=== PATIENT | male | born 1945 | race Caucasian/White ===

== ENCOUNTER 2017-05-31 17:57 | Observation (INO) | payer OTHER ==
[~2017-05-31] VITALS: Ht 167.6 cm; Wt 95.0 kg
[~2017-05-31 17:57] MED LIST: AMLO2.5T PO; ASPI325T PO; CYAN1000P IM; FLUT50SP EACH NARE; GABA300C3 PO; HYDR10SO PO; METHO500 PO; MEVA40TA PO; MONT10TA2 PO; TRIX0.07 TOP; ZOLP5TAB3 PO
[2017-05-31 17:58] VITALS: BP 157/84; PULSE 67; RESP 16; TEMP 98.9; O2SAT 97
[2017-05-31 19:11] LABS: AUTOMATED NEUTROPHIL # 7.7 TH/MM3 (1.8-7.7); BASOPHIL # 0.1 TH/MM3 (0-0.2); BASOPHIL % 0.5 % (0.0-2.0); EOSINOPHIL % 0.5 % (0.0-4.0); HEMATOCRIT 39.4 % (39.0-51.0); HEMO FLAGS DIFF FINAL; LYMPH % 18.4 % (9.0-44.0); MEAN CELL VOLUME 97.1 FL (80.0-100.0); MEAN CORPUSCULAR HEMOGLOBIN 33.2 PG (27.0-34.0); MEAN CORPUSCULAR HGB CONC 34.2 % (32.0-36.0); MONO % 9.6 % (0.0-8.0); PLATELET COUNT 204 TH/MM3 (150-450); RED BLOOD COUNT 4.06 MIL/MM3 (4.50-5.90); RED CELL DISTRIBUTION WIDTH 12.9 % (11.6-17.2); WHITE BLOOD COUNT 10.8 TH/MM3 (4.0-11.0)
--- NOTE | 2017-05-31 19:11 | RADRPT ---
EXAM DATE/TIME: 05/31/2017 19:04 [facility] COMPARISON: CHEST SINGLE AP, January 14, 2014, 9:15. INDICATIONS : Chest pain and short of breath today. MEDICAL HISTORY : Hypertension. Atrial fibrillation. SURGICAL HISTORY : Pacemaker. ENCOUNTER: Initial ACUITY: 1 day PAIN SCORE: 5/10 LOCATION: Bilateral chest FINDINGS: PA and lateral views of the chest demonstrate the lungs to be symmetrically aerated without evidence of mass, infiltrate or effusion. The cardiomediastinal contours are unremarkable. Osseous structure s are intact with hypertrophic right-sided spurring mid and lower thoracic spine. Bipolar pacemaker o verlies the left hemithorax unchanged CONCLUSION: No acute disease. No significant change has occurred. Paul Witt MD on May 31, 2017 at 19:09 Board Certified Radiologist. This report was verified electronically.
[2017-05-31 19:24] LABS: ANION GAP 6 MEQ/L (5-15); BLOOD UREA NITROGEN 22 MG/DL (7-18); CHLORIDE 108 MEQ/L (98-107); GLOMERULAR FILTRATION RATE 64 ML/MIN (>89); POTASSIUM 4.2 MEQ/L (3.5-5.1); SODIUM (NA) 139 MEQ/L (136-145)
[2017-05-31 19:32] LABS: CREATINE KINASE 53 U/L (39-308)
[2017-05-31 20:35] VITALS: O2SAT 100
[2017-05-31] MEDS ORDERED: APIX5TAB PO (20:42)
[2017-05-31] MEDS ORDERED: AZEL1SPR2 EACH NARE (20:42)
[2017-05-31] MEDS ORDERED: CYAN1000P IM (20:42)
[2017-05-31] MEDS ORDERED: ASPI325T33 PO (20:42)
[2017-05-31] MEDS ORDERED: FLUT50SP EACH NARE (20:42)
[2017-05-31] MEDS ORDERED: AMLO2.5T PO (20:42)
[2017-05-31] MEDS ORDERED: ATOR40TA16 PO (20:42)
[2017-05-31] MEDS ORDERED: ZOSTCRE TOPICAL (20:42)
[2017-05-31] MEDS ORDERED: SODIUM CHLORIDE 0.9% FLUSH 10 ML FLUSH IV FLUSH PRN (20:45)
[2017-05-31] MEDS ORDERED: NITROGLYCERIN 2% OINT 1 GM PACKET TOP SCH (20:45)
[2017-05-31 20:46] VITALS: O2SAT 100
--- NOTE | 2017-05-31 20:55 | PD ---
HPI Chief Complaint: Chest Pain Time Seen by Provider: 20:27 Travel History International Travel<30 days: No Contact w/Intl Traveler<30days: No Traveled to known affect area: No History of Present Illness HPI This is a 9-year-old male with history of hypertension, hyperlipidemia, atrial fibrillation, pacemaker, who presents today with complaints of chest pressure and shortness of breath on and off for 24 hours. The patient denies any diaphoresis or nausea. He had his labs drawn out front and they have or to come back. Cardiac enzymes are negative for acute process. EKG shows a paced rhythm with a rate of 63. He currently is just been started 5 days ago on eliquis for the atrial fibrillation. PFSH Past Medical History Hx Anticoagulant Therapy: Yes Anemia: Yes Arthritis: No Asthma: Yes Autoimmune Disease: No Blood Disorders: No Anxiety: No Depression: No Heart Rhythm Problems: Yes (A FIB) Cancer: Yes (LEFT KIDNEY) Cardiovascular Problems: Yes High Cholesterol: Yes Chemotherapy: No Chest Pain: No Congestive Heart Failure: No COPD: No Cerebrovascular Accident: No Diabetes: No Diminished Hearing: No Endocrine: No Gastrointestinal Disorders: Yes GERD: No Glaucoma: Yes Genitourinary: Yes Headaches: No Hepatitis: No Hiatal Hernia: No Hypertension: Yes Immune Disorder: No Implanted Vascular Access Dvce: Yes Kidney Stones: No Musculoskeletal: No Neurologic: Yes (LEFT SCIATICA) Psychiatric: No Reproductive: No Respiratory: Yes Myocardial Infarction: No Radiation Therapy: No Renal Failure: No Seizures: No Sickle Cell Disease: No Sleep Apnea: Yes (Cpap at home) Thyroid Disease: No Ulcer: No Past Surgical History AICD: No Body Medical Devices: MESH TO REPAIR VENTRAL HERNIA, PACEMAKER Cardiac Surgery: Yes (PACEMAKER) Ear Surgery: No Endocrine Surgery: No Eye Surgery: No Genitourinary Surgery: Yes (LEFT NEPHRECTOMY-2001) Gynecologic Surgery: No Neurologic Surgery: No Oral Surgery: No Pacemaker: No Thoracic Surgery: No Other Surgery: Yes (INCISIONAL HERNIA REPAIR) Social History Alcohol Use: Yes (WINE DAILY) Tobacco Use: No Substance Use: No Allergies-Medications (Allergen,Severity, Reaction): Coded Allergies: No Known Allergies (Unverified , 08/12/15) Reported Meds & Prescriptions Reported Meds & Active Scripts Active Reported Fluticasone Nasal [place] 50 Mcg/Act Naspr 50 Mcg EACH NARE BID 50 mcg/spray Cyanocobalamin Inj (Cyanocobalamin) 1,000 Mcg/Ml Inj 1,000 Mcg IM ONCE Zostrix Arthritis Pain Relief Topical (Capsaicin) 0.025% Cream 1 Applic TOPICAL QID Azelastine Nasal [place] (Azelastine HCl) 0.1% [place] 1 [place] EACH NARE BID Atorvastatin (Atorvastatin Calcium) 40 Mg Tab 40 Mg PO HS Aspirin EC (Aspirin) 325 Mg Tabdr 325 Mg PO BID Amlodipine (Amlodipine Besylate) 2.5 Mg Tab 2.5 Mg PO DAILY Eliquis (Apixaban) 5 Mg Tab 5 Mg PO BID Review of Systems Except as stated in HPI: all other systems reviewed are Neg General / Constitutional: No: Fever, Chills HENT: No: Headaches, Neck Pain Cardiovascular: Positive: Chest Pain or Discomfort, Irregular Rhythm (newly diagnosed A. fib with a pacer as well.), No: Palpitations Respiratory: Positive: Shortness of Breath, No: Cough Gastrointestinal: No: Nausea, Vomiting, Abdominal Pain Genitourinary: No: Dysuria, Incontinence Musculoskeletal: Positive: Pain (chronic arthritis, no new pain.), No: Weakness Neurologic: No: Weakness, Dizziness, Headache Physical Exam Narrative GENERAL: Well developed well-nourished male in no acute respiratory distress. SKIN: Focused skin assessment warm/dry. HEAD: Atraumatic. Normocephalic. EYES: No scleral icterus. No injection or drainage. ENT: No nasal bleeding or discharge. Mucous membranes pink and moist. NECK: Trachea midline. Supple. CARDIOVASCULAR: Regular rate and rhythm. No murmur appreciated. RESPIRATORY: No accessory muscle use. Clear to auscultation. Breath sounds equal bilaterally. GASTROINTESTINAL: Abdomen soft, non-tender, nondistended. Hepatic and splenic margins not palpable. MUSCULOSKELETAL: No obvious deformities. No clubbing. No cyanosis. No edema. NEUROLOGICAL: Awake and alert. No obvious cranial nerve deficits. Motor grossly within normal limits. Normal speech. PSYCHIATRIC: Appropriate mood and affect; insight and judgment normal. Data Data Last Documented VS Vital Signs Date Time Temp Pulse Resp B/P (MAP) Pulse Ox O2 Delivery O2 Flow Rate FiO2 05/31/17 20:35 100 Nasal Cannula 2.00 05/31/17 20:35 05/31/17 20:27 18 05/31/17 17:58 98.9 67 Orders Orders Electrocardiogram (05/31/17 18:10) Complete Blood Count With Diff (05/31/17 18:10) Basic Metabolic Panel (Bmp) (05/31/17 18:10) Ckmb (Isoenzyme) Profile (05/31/17 18:10) Troponin I (05/31/17 18:10) Iv Access Insert/Monitor (05/31/17 18:10) Ecg Monitoring (05/31/17 18:10) Oxygen Administration (05/31/17 18:10) Oximetry (05/31/17 18:10) Chest, Pa & Lat (05/31/17 18:10) Place In Observation (05/31/17 20:39) Activity Bed Rest With Brp (05/31/17 20:39) Vital Signs (Adult) Q4H (05/31/17:39) Cardiac Rhythm .As Directed (05/31/17 20:39) Notify Dr: Other .PRN (05/31/17 20:39) Notify Dr. Parameters (05/31/17 20:39) Resp Oxygen Nasal Cannula (05/31/17 ) Ckmb (Isoenzyme) Profile (05/31/17 21:10) Ckmb (Isoenzyme) Profile (06/01/17 00:10) Troponin I (05/31/17 21:10) Troponin I (06/01/17 00:10) Electrocardiogram (05/31/17 21:10) Electrocardiogram (06/01/17 00:10) ^ Obtain (05/31/17 20:39) Sodium Chloride 0.9% Flush (Ns Flush) (05/31/17 20:45) Sodium Chloride 0.9% Flush (Ns Flush) (05/31/17 21:00) Nitroglycerin 2% Oint (Nitroglycerin 2% (05/31/17 20:45) Boom Man / Telemetry CORDELL.Q8H (05/31/17 20:39) Admit Order (Ed Use Only) (05/31/17 20:39) Labs Laboratory Tests Test 05/31/17 18:27 White Blood Count 10.8 TH/MM3 Red Blood Count 4.06 MIL/MM3 Hemoglobin 13.5 GM/DL Hematocrit 39.4 % Mean Corpuscular Volume 97.1 FL Mean Corpuscular Hemoglobin 33.2 PG Mean Corpuscular Hemoglobin Concent 34.2 % Red Cell Distribution Width 12.9 % Platelet Count 204 TH/MM3 Mean Platelet Volume 9.4 FL Neutrophils (%) (Auto) 71.0 % Lymphocytes (%) (Auto) 18.4 % Monocytes (%) (Auto) 9.6 % Eosinophils (%) (Auto) 0.5 % Basophils (%) (Auto) 0.5 % Neutrophils # (Auto) 7.7 TH/MM3 Lymphocytes # (Auto) 2.0 TH/MM3 Monocytes # (Auto) 1.0 TH/MM3 Eosinophils # (Auto) 0.0 TH/MM3 Basophils # (Auto) 0.1 TH/MM3 CBC Comment DIFF FINAL Differential Comment Blood Urea Nitrogen 22 MG/DL Creatinine 1.13 MG/DL Random Glucose 97 MG/DL Calcium Level 8.7 MG/DL Sodium Level 139 MEQ/L Potassium Level 4.2 MEQ/L Chloride Level 108 MEQ/L Carbon Dioxide Level 25.0 MEQ/L Anion Gap 6 MEQ/L Estimat Glomerular Filtration Rate 64 ML/MIN Total Creatine Kinase 53 U/L Troponin I LESS THAN 0.02 NG/ML MDM Medical Decision Making Medical Screen Exam Complete: Yes Emergency Medical Condition: Yes Differential Diagnosis ACS versus muscle skeletal pain versus pacemaker malfunction Narrative Course 72-year-old male with a history of hypertension, hyperlipidemia, paced rhythm, newly diagnosed atrial fibrillation, who presents today with complaints of chest pain and shortness of breath. The patient's EKG shows a paced rhythm with occasional PVC. Patient cardiac enzymes are within normal limits. The patient will be admitted to the chest pain center for rule out protocol. We will call the pacemaker rep and have them come in tomorrow morning to interrogate his pacemaker. We will do serial enzymes. He'll have his medications continued. Diagnosis Primary Impression: Chest pain Additional Impressions: Hyperlipidemia Hypertension newly diagnosed atrial fibrillation Paced rhythm on quality assurance monitor final Admitting Information Admitting Physician Requests: Observation Vinod Lorenzo MD May 31, 2017 20:55
[2017-05-31] MEDS ORDERED: APIXABAN 5 MG TABLET PO ONE (21:00)
[2017-05-31] MEDS ORDERED: ATORVASTATIN 40 MG TAB PO ONE (21:00)
[2017-05-31] MEDS: SODIUM CHLORIDE 0.9% FLUSH 10 ML FLUSH IV FLUSH SCH (21:00)
[2017-05-31] MEDS ORDERED: amLODIPine BESYLATE 5 MG TAB PO ONE (21:00)
[2017-05-31] MEDS ORDERED: GABA300C5 PO (21:13)
[2017-05-31] MEDS: NITROGLYCERIN 2% OINT 1 GM PACKET TOP SCH (21:28)
[2017-05-31] MEDS ORDERED: ZOLPIDEM TARTRATE 5 MG TAB PO PRN (21:30)
[2017-05-31 22:07] VITALS: BP 132/91; PULSE 62; RESP 20; TEMP 98; O2SAT 97
[2017-06-01 00:53] VITALS: BP 111/59; PULSE 63; RESP 18; TEMP 98.2; O2SAT 96
[2017-06-01 00:59] VITALS: PULSE 66
[2017-06-01 02:06] LABS: CREATINE KINASE 37 U/L (39-308)
[2017-06-01] MEDS: NITROGLYCERIN 2% OINT 1 GM PACKET TOP SCH ×3 (03:00→15:00)
[2017-06-01 03:26] VITALS: BP 99/59; PULSE 65; RESP 18; TEMP 98.3; O2SAT 97
[2017-06-01 07:20] VITALS: O2SAT 98
[2017-06-01 07:26] VITALS: BP 119/71; PULSE 63; RESP 20; TEMP 98.4; O2SAT 98
[2017-06-01 08:11] VITALS: PULSE 79
[2017-06-01] MEDS ORDERED: HYDR-3533 PO (08:32)
[2017-06-01] MEDS: SODIUM CHLORIDE 0.9% FLUSH 10 ML FLUSH IV FLUSH SCH (09:00)
[2017-06-01] MEDS ORDERED: ACETAMINOPHEN/HYDROcodone 325 MG/5 MG TAB PO PRN (09:15)
[2017-06-01 09:27] LABS: CREATINE KINASE 31 U/L (39-308)
--- NOTE | 2017-06-01 09:47 | PD.CARD.PN ---
Subjective Subjective Remarks 72 yo male sent from [place]. 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 He went to [place] and was sent here. Hx. of Pacer for slow rate implanted by Dr. Ibarra but followed at [facility] and has no cardiology fu here. No real chest pain but did have heaviness in mid chest during this episode when he tried to take a deep breath. PE chest clear, pacer intact, rhythm regular with no G, R, M EKG one sinus, one paced, and bigeminy noted labs OK Will evaluate with LARISSA scan if + admit and if not discharge with instructions to fu with vest busheler at [facility] for reevaluation of pacer, and rhythm issues. Objective Medications Current Medications Medications (Trade) Dose Ordered Sig/Holly Route Start Time Stop Time Status Last Admin (NS Flush) 2 ml UNSCH PRN IV FLUSH 05/31/17 20:45 (NS Flush) 2 ml BID IV FLUSH 05/31/17 21:00 (Nitroglycerin 2% Oint) 1 inch Q6H TOP 05/31/17 21:00 05/31/17 21:28 (Ambien) 5 mg HS PRN PO 05/31/17 21:30 05/31/17 22:57 (Ecotrin Ec) 325 mg BID PO 06/01/17 09:00 UNV (Lipitor) 40 mg HS PO 06/01/17 21:00 (Norvasc) 1.25 mg BID PO 06/01/17 09:15 UNV (Neurontin) 300 mg BID PO 06/01/17 21:00 ([place] 5-325 Mg) 1 tab Q6H PRN PO 06/01/17 09:15 Vital Signs / I&O Vital Signs Date Time Temp Pulse Resp B/P (MAP) Pulse Ox O2 Delivery O2 Flow Rate FiO2 06/01/17 07:26 98.4 63 20 119/71 (87) 98 06/01/17 07:20 98 Nasal Cannula 1.00 06/01/17 03:26 98.3 65 18 99/59 (72) 97 06/01/17 00:59 66 06/01/17 00:53 98.2 63 18 111/59 (76) 96 05/31/17 22:07 98.0 62 20 132/91 (105) 97 05/31/17 21:33 05/31/17 20:46 100 Nasal Cannula 2.00 05/31/17 20:35 100 Nasal Cannula 2.00 05/31/17 20:35 100 Nasal Cannula 2.00 05/31/17 20:27 18 99 Room Air 05/31/17 17:58 98.9 67 16 157/84 (108) 97 Room Air Laboratory Laboratory Tests Test 05/31/17 18:27 06/01/17 01:23 06/01/17 08:00 White Blood Count 10.8 TH/MM3 Red Blood Count 4.06 MIL/MM3 Hemoglobin 13.5 GM/DL Hematocrit 39.4 % Mean Corpuscular Volume 97.1 FL Mean Corpuscular Hemoglobin 33.2 PG Mean Corpuscular Hemoglobin Concent 34.2 % Red Cell Distribution Width 12.9 % Platelet Count 204 TH/MM3 Mean Platelet Volume 9.4 FL Neutrophils (%) (Auto) 71.0 % Lymphocytes (%) (Auto) 18.4 % Monocytes (%) (Auto) 9.6 % Eosinophils (%) (Auto) 0.5 % Basophils (%) (Auto) 0.5 % Neutrophils # (Auto) 7.7 TH/MM3 Lymphocytes # (Auto) 2.0 TH/MM3 Monocytes # (Auto) 1.0 TH/MM3 Eosinophils # (Auto) 0.0 TH/MM3 Basophils # (Auto) 0.1 TH/MM3 CBC Comment DIFF FINAL Differential Comment Blood Urea Nitrogen 22 MG/DL Creatinine 1.13 MG/DL Random Glucose 97 MG/DL Calcium Level 8.7 MG/DL Sodium Level 139 MEQ/L Potassium Level 4.2 MEQ/L Chloride Level 108 MEQ/L Carbon Dioxide Level 25.0 MEQ/L Anion Gap 6 MEQ/L Estimat Glomerular Filtration Rate 64 ML/MIN Total Creatine Kinase 53 U/L 37 U/L 31 U/L Troponin I LESS THAN 0.02 NG/ML LESS THAN 0.02 NG/ML LESS THAN 0.02 NG/ML Imaging Last 24 hours Impressions Chest X-Ray 05/31/17 1810 Signed Impressions: Service Date/Time: Wednesday, May 31, 2017 19:04 - CONCLUSION: No acute disease. No significant change has occurred. PaulMD Geo Wu Donald J. MD Jun 01, 2017 09:47
[2017-06-01] MEDS ORDERED: PILL SPLITTER OTHER PRN (10:30)
[2017-06-01] MEDS ORDERED: amLODIPine BESYLATE 5 MG TAB PO SCH (10:30)
[2017-06-01] MEDS ORDERED: REGADENOSON INJ 0.4 MG/5 ML SYR ONE (10:56)
--- NOTE | 2017-06-01 11:03 | HHI.HP ---
HPI Primary Care Physician Denny [facility] Chief Complaint Chest pain History of Present Illness This is a 72-year-old male with history of recently diagnosed with atrial fibrillation, hypertension, hyperlipidemia pacemaker, chronic back pain that presents to ED with a complaint of yesterday developing a discomfort while he was at his house. He describes as sitting on his chest. States lasted throughout the day as a steady for out of 10. He estimates 12 hours of duration. He was short of breath and diaphoretic. No nausea. Nothing seemed to worsen or improve it. States that about a week ago he is diagnosed with [place] fibrillation at the [place] and placed on Eliquis. Cannot recall last stress test, I reviewed her records and last stress test here was in 2008. He had a nonischemic adenosine thallium stress test. He is not believes had one since. Cannot recall ever having a cardiac catheterization. He had a pacemaker placed in 2013 secondary symptomatically bradycardia. Pacemaker rep interrogated the pacemaker this morning and found to have increased ventricular rate of 181. Patient denies any symptoms at this time. States he has been compliant with his medications. 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 Review of Systems General: Patient denies fevers, chills recent, and recent travel HEENT: Patient denies headache, sore throat, difficulty swallowing. Cardiovascular: Has the chest discomfort as mentioned above. Denies sensation of heart beating rapidly or irregularly. No syncope. He was diaphoretic. Respiratory: He was short of breath. Denies inspirational chest discomfort. Denies coughing wheezing or hemoptysis. GI: Patient denies nausea, vomiting, diarrhea, abdominal pain, bloody stools. Musculoskeletal: Patient denies joint pain or edema. Denies calf pain or edema. Neurovascular: Patient denies numbness, tingling, weakness in extremities. Denies headache. Endocrine: Denies polyuria and polydipsia. Hematologic: Denies easy bruising. Skin: Denies rash or itching. Past Family Social History Allergies: Coded Allergies: No Known Allergies (Unverified , 08/12/15) Past Medical History Recently diagnosed with atrial fibrillation. Has pacemaker. Hypertension, hyperlipidemia, chronic back pain. Left nephrectomy years ago secondary to renal carcinoma. Past Surgical History Left nephrectomy secondary to renal carcinoma. Pacemaker. Ventral hernia repair. Reported Medications Reported Meds & Active Scripts Active Reported Lortab (Hydrocodone-Acetaminophen) 5-325 Mg Tab 1 Tab PO Q6HR PRN Gabapentin 300 Mg Cap 300 Mg PO BID Fluticasone Nasal [place] 50 Mcg/Act Naspr 50 Mcg EACH NARE BID 50 mcg/spray Cyanocobalamin Inj (Cyanocobalamin) 1,000 Mcg/Ml Inj 1,000 Mcg IM ONCE Zostrix Arthritis Pain Relief Topical (Capsaicin) 0.025% Cream 1 Applic TOPICAL QID Azelastine Nasal [place] (Azelastine HCl) 0.1% [place] 1 [place] EACH NARE BID Atorvastatin (Atorvastatin Calcium) 40 Mg Tab 40 Mg PO HS Aspirin EC (Aspirin) 325 Mg Tabdr 325 Mg PO BID Amlodipine (Amlodipine Besylate) 2.5 Mg Tab 1.25 Mg PO BID Eliquis (Apixaban) 5 Mg Tab 5 Mg PO BID Active Ordered Medications Current Medications Medications (Trade) Dose Ordered Sig/Holly Route Start Time Stop Time Status Last Admin (NS Flush) 2 ml UNSCH PRN IV FLUSH 05/31/17 20:45 (NS Flush) 2 ml BID IV FLUSH 05/31/17 21:00 (Nitroglycerin 2% Oint) 1 inch Q6H TOP 05/31/17 21:00 05/31/17 21:28 (Ambien) 5 mg HS PRN PO 05/31/17 21:30 05/31/17 22:57 (Ecotrin Ec) 325 mg BID PO 06/01/17 09:00 UNV (Lipitor) 40 mg HS PO 06/01/17 21:00 (Norvasc) 1.25 mg BID PO 06/01/17 10:30 (Neurontin) 300 mg BID PO 06/01/17 21:00 ([place] 5-325 Mg) 1 tab Q6H PRN PO 06/01/17 09:15 (Pill Splitter) 1 ea UNSCH PRN OTHER 06/01/17 10:30 Family History His father had CAD with onset in his late 60s. Social History Nonsmoker. Denies illicit drugs. He has on average 2 glasses of wine at dinner. Physical Exam Vital Signs Vital Signs Date Time Temp Pulse Resp B/P (MAP) Pulse Ox O2 Delivery O2 Flow Rate FiO2 06/01/17 07:26 98.4 63 20 119/71 (87) 98 06/01/17 07:20 98 Nasal Cannula 1.00 06/01/17 03:26 98.3 65 18 99/59 (72) 97 06/01/17 00:59 66 06/01/17 00:53 98.2 63 18 111/59 (76) 96 05/31/17 22:07 98.0 62 20 132/91 (105) 97 05/31/17 21:33 05/31/17 20:46 100 Nasal Cannula 2.00 05/31/17 20:35 100 Nasal Cannula 2.00 05/31/17 20:35 100 Nasal Cannula 2.00 05/31/17 20:27 18 99 Room Air 05/31/17 17:58 98.9 67 16 157/84 (108) 97 Room Air Physical Exam GENERAL: This is a well-nourished, well-developed patient, in no apparent distress. Patient speaks in clear complete sentences. Patient is pleasant. HEENT: Head is atraumatic and normocephalic. Neck is supple without lymphadenopathy and trachea is midline. No JVD or carotid bruits. CARDIOVASCULAR: Regular rate and rhythm without murmurs, gallops, or rubs. RESPIRATORY: Clear to auscultation. Breath sounds equal bilaterally. No wheezes , rales, or rhonchi. Chest wall is tender reproducing the discomfort that brought him to the ED. No use of accessory muscles. GASTROINTESTINAL: Abdomen is nontender, nondistended. Abdomen soft. No obvious pulsatile mass or bruit. No CVA tenderness. Strong femoral pulses bilaterally. Normal bowel sounds in all quadrants. MUSCULOSKELETAL: Patient is moving upper and lower extremities freely. No calf tenderness or edema, no Homans sign. Strong pulses in upper and lower extremities. NEUROLOGICAL: Patient is alert and oriented. Cranial nerves 2-12 are grossly intact. No focal deficits and speech is clear. SKIN: No rash and turgor is normal. Laboratory Laboratory Tests Test 05/31/17 18:27 06/01/17 01:23 06/01/17 08:00 White Blood Count 10.8 Red Blood Count 4.06 Hemoglobin 13.5 Hematocrit 39.4 Mean Corpuscular Volume 97.1 Mean Corpuscular Hemoglobin 33.2 Mean Corpuscular Hemoglobin Concent 34.2 Red Cell Distribution Width 12.9 Platelet Count 204 Mean Platelet Volume 9.4 Neutrophils (%) (Auto) 71.0 Lymphocytes (%) (Auto) 18.4 Monocytes (%) (Auto) 9.6 Eosinophils (%) (Auto) 0.5 Basophils (%) (Auto) 0.5 Neutrophils # (Auto) 7.7 Lymphocytes # (Auto) 2.0 Monocytes # (Auto) 1.0 Eosinophils # (Auto) 0.0 Basophils # (Auto) 0.1 CBC Comment DIFF FINAL Differential Comment Blood Urea Nitrogen 22 Creatinine 1.13 Random Glucose 97 Calcium Level 8.7 Sodium Level 139 Potassium Level 4.2 Chloride Level 108 Carbon Dioxide Level 25.0 Anion Gap 6 Estimat Glomerular Filtration Rate 64 Total Creatine Kinase 53 37 31 Troponin I LESS THAN 0.02 LESS THAN 0.02 LESS THAN 0.02 Result Diagram: 05/31/17182605/31/171826 Imaging Last 48 hours Impressions Chest X-Ray 05/31/171809 Signed Impressions: Service Date/Time: Wednesday, May 31, 2017 19:04 - CONCLUSION: No acute disease. No significant change has occurred. Paul Witt MD Course Initial EKG sinus rhythm without significant ST segment depressions or elevations. Second and third EKGs are atrial paced without significant ST segment depressions or elevations. Caprini VTE Risk Assessment Caprini VTE Risk Assessment: Mod/High Risk (score >= 2) Caprini Risk Assessment Model Point Value = 1 Point Value = 2 Point Value = 3 Point Value = 5 Age 41-60 Minor surgery BMI > 25 kg/m2 Swollen legs Varicose veins or History of unexplained or recurrent spontaneous Oral contraceptives or hormone replacement Sepsis (< 1 month) Serious lung disease, including pneumonia (< 1 month) Abnormal pulmonary function Acute myocardial infarction Congestive heart failure (< 1 month) History of inflammatory bowel disease Medical patient at bed rest Age 61-74 Arthroscopic surgery Major open surgery (> 45 min) Laparoscopic surgery (> 45 min) Malignancy Confined to bed (> 72 hours) Immobilizing plaster cast Central venous access Age >= 75 History of VTE Family history of VTE Factor V Leiden Prothrombin [id number] Lupus anticoagulant Anticardiolipin antibodies Elevated serum homocysteine Heparin-induced thrombocytopenia Other congenital or acquired thrombophilia Stroke (< 1 month) Elective arthroplasty Hip, pelvis, or leg fracture Acute spinal cord injury (< 1 month) Prophylaxis Regimen Total Risk Factor Score Risk Level Prophylaxis Regimen 0-1 Low Early ambulation 2 Moderate Order ONE of the following: *Sequential Compression Device (SCD) *Heparin 5000 units SQ BID 3-4 Higher Order ONE of the following medications: *Heparin 5000 units SQ TID *Enoxaparin/Lovenox 40 mg SQ daily (WT < 150 kg, CrCl > 30 mL/min) *Enoxaparin/Lovenox 30 mg SQ daily (WT < 150 kg, CrCl > 10-29 mL/min) *Enoxaparin/Lovenox 30 mg SQ BID (WT < 150 kg, CrCl > 30 mL/min) AND/OR *Sequential Compression Device (SCD) 5 or more Highest Order ONE of the following medications: *Heparin 5000 units SQ TID (Preferred with Epidurals) *Enoxaparin/Lovenox 40 mg SQ daily (WT < 150 kg, CrCl > 30 mL/min) *Enoxaparin/Lovenox 30 mg SQ daily (WT < 150 kg, CrCl > 10-29 mL/min) *Enoxaparin/Lovenox 30 mg SQ BID (WT < 150 kg, CrCl > 30 mL/min) AND *Sequential Compression Device (SCD) Assessment and Plan Assessment and Plan * Chest pain: Patient has had serial cardiac enzymes and EKGs for ruling out purposes and has been seen by Dr. Guardado of cardiology and the chest pain center. He will undergo a Lexiscan myocardial perfusion stress test and nonischemic will be discharged home with instructions to follow-up with his PCP as well as mill work to the [place]. He should have his pacemaker also interrogated to the [place] and further discuss his atrial fibrillation. * Pacemaker: Continue follow-up with cardiology at the [facility]. * Hypertension: Continue current medication. * Hyperlipidemia: Continue current medication. * Chronic back pain: Continue current medication. * History of A. fib: He has been sinus rhythm however pacemaker rep detected in increased ventricular rate arrhythmia which likely was A. fib with possible rapid ventricular rate. He will need to further discuss this with his mill work at the [place]. He is on Eliquis at this time. Patient is stable at this time. He is agreeable to this plan. Scout Monzon Jun 01, 2017 11:03
[2017-06-01] MEDS ORDERED: ASPIRIN EC 325 MG TABEC PO SCH (12:00)
--- NOTE | 2017-06-01 13:13 | TR ---
Date Performed: 06/01/2017 Time Performed: 11:53:59 DOCTOR: Denny Guardado DRUG LIST: CLINICAL HISTORY: ANGINA REASON FOR TEST: REASON FOR ENDING: OBSERVATION: CONCLUSION: Lexiscan stress test was performed under standard four minute protocol. Radionuclide was injected one minute prior to ending the test. No electrocardiographic abormalities were present to suggest ischemia. Nuclear imaging and interpretation are pending. COMMENTS:
--- NOTE | 2017-06-01 13:20 | RADRPT ---
EXAM DATE/TIME: 06/01/2017 11:25 [facility] COMPARISON: No previous studies available for comparison. INDICATIONS : Left sided chest pain with shortness of breath for one day. Angina. Atrial fibrillation. DOSE: 25.4 mCi Tc99m Myoview at stress. 8.7 mCi Tc99m Myoview at rest. 0.4 mg Lexiscan STRESS SYMPTOMS: Nausea, shortness of breath. EJECTION FRACTION: 66% MEDICAL HISTORY : Hypertension. SURGICAL HISTORY : Pacemaker. Nephrectomy, left. ENCOUNTER: Initial ACUITY: 1 day PAIN SCALE: 7/10 LOCATION: Midsternal chest TECHNIQUE: The patient underwent pharmacologic stress with infusion of prescribed dose. Continuous ECG tracing was monitored during stress. Gated SPECT imaging was performed after stress and conventional SPECT i maging was performed at rest. The examination was performed on a SPECT/CT scanner, both attenuation and non-corrected datasets were reviewed. FINDINGS: DISTRIBUTION: The maximum perfused segment at stress is in the septal wall. PERFUSION STUDY: The pattern of perfusion at stress is within normal limits. GATED STUDY: There is intact wall motion and thickening without hypokinetic or dyskinetic segments. CONCLUSION: Unremarkable myocardial perfusion examination. RISK CATEGORY: Low Severo Connell MD on June 01, 2017 at 13:18 Board Certified Radiologist. This report was verified electronically.
--- NOTE | 2017-06-01 13:26 | HHI.DCPOC ---
Discharge Care Plan Diagnosis: (1) Pacemaker (2) Chest pain (3) Hypertension (4) Hyperlipidemia (5) Paroxysmal a-fib Goals to Promote Your Health * To prevent worsening of your condition and complications * To maintain your health at the optimal level Directions to Meet Your Goals Take your medications as prescribed Follow your dietary instruction Follow activity as directed Keep your appointments as scheduled Take your immunizations and boosters as scheduled If your symptoms worsen call your PCP, if no PCP go to Urgent Care Center or Emergency Room Smoking is Dangerous to Your Health. Avoid second hand smoke Call the 24-hour hour crisis hotline for domestic abuse at [facility] Jun 01, 2017 13:26
--- NOTE | 2017-06-01 13:33 | EKG ---
Date Performed: 06/01/2017 Time Performed: 00:59:39 PTAGE: 72 years EKG: ELECTRONIC ATRIAL PACEMAKER ABNORMAL RHYTHM ECG PREVIOUS TRACING : 05/31/2017 22.02 DOCTOR: Denny Guardado Interpretating Date/Time 06/01/2017 13:31:51
--- NOTE | 2017-06-01 13:34 | EKG ---
Date Performed: 05/31/2017 Time Performed: 22:02:15 PTAGE: 72 years EKG: ELECTRONIC ATRIAL PACEMAKER ABNORMAL RHYTHM ECG PREVIOUS TRACING : 05/31/2017 18.17 DOCTOR: Denny Guardado Interpretating Date/Time 06/01/2017 13:33:47
--- NOTE | 2017-06-01 13:36 | EKG ---
Date Performed: 05/31/2017 Time Performed: 18:17:29 PTAGE: 72 years EKG: ELECTRONIC ATRIAL PACEMAKER ABNORMAL RHYTHM ECG PREVIOUS TRACING : 01/15/2014 07.11 DOCTOR: Denny Guardado Interpretating Date/Time 06/01/2017 13:35:02
[2017-06-01] MEDS ORDERED: ATORVASTATIN 40 MG TAB PO SCH (21:00)
[2017-06-01] MEDS ORDERED: GABAPENTIN 300 MG CAP PO SCH (21:00)
== END 2017-06-01 17:17 | disposition home or self-care (01) ==
LOC: NEPE 17:57 → NEDA 20:43 → NEPFCDU 21:34
DX: R07.89 Other chest pain (principal); R06.02 Shortness of breath; E78.5 Hyperlipidemia, unspecified; I10 Essential (primary) hypertension; I48.0 Paroxysmal atrial fibrillation; Z79.01 Long term (current) use of anticoagulants; E78.00 Pure hypercholesterolemia, unspecified; G47.30 Sleep apnea, unspecified; H40.9 Unspecified glaucoma; I49.3 Ventricular premature depolarization; G89.29 Other chronic pain; M54.9 Dorsalgia, unspecified; J45.909 Unspecified asthma, uncomplicated; Z95.0 Presence of cardiac pacemaker; Z85.528 Personal history of other malignant neoplasm of kidney; Z79.82 Long term (current) use of aspirin; Z79.899 Other long term (current) drug therapy
CPT/HCPCS: 71020; 78452; 80048; 82550; 84484; 85025; 93005; 93017; 99285; A9502; G0378; J2785